=== PATIENT | male | born 2000 | race Caucasian/White ===

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

== ENCOUNTER 2021-02-03 11:00 | Emergency (ER) | payer SELFPAY ==
[~2021-02-03] VITALS: Ht 170 cm; Wt 80.0 kg
--- NOTE | 2021-02-03 11:03 | ED Integumentary General ---
General Chief Complaint: Bite-Animal/Human/Insect Stated Complaint: INSECT BITES History of Present Illness Date Seen by Provider: Feb 03, 2021 Time Seen by Provider: 11:11 Initial Comments 20-year-old male presents with sporadic sores/insect bites over mainly his left lower leg between the the mid thigh down to the ankle. Reports it has been happening for about a month. He also has a few on the right lower leg. Patient states that happened after he went out fishing. Has not been seen by anybody for it. Patient is not training for it. Reports that they get very itchy. Allergies and Home Medications Allergies Coded Allergies: NKANo Known Allergies (Unverified Allergy, Mild, 02/20/09) Uncoded Allergies: BLEACH (Allergy, Mild, 01/01/12) ENVIRONMENTAL (Allergy, Mild, 01/01/12) Home Medications Amoxicillin 875 Mg Tablet, 875 MG PO BID Prescribed by: JORGE PITT on 03/03/15 2100 Cephalexin 500 Mg Capsule, 500 MG PO TID Prescribed by: NEIL EDWARDS on 03/27/20 1607 Clotrimazole 15 Gm Cream..g., 1 GM TP BID Prescribed by: MEÑO PATEL on 01/28/18 1824 Mupirocin Calcium 15 Gm Cream..g., 15 GM TP TID Prescribed by: TOMI TRIANA on 02/03/21 1119 Patient Home Medication List Home Medication List Reviewed: Yes Review of Systems Review of Systems Constitutional: no symptoms reported Respiratory: no symptoms reported Cardiovascular: no symptoms reported Genitourinary: no symptoms reported Musculoskeletal: no symptoms reported Skin: see HPI Psychiatric/Neurological: No Symptoms Reported Endocrine: No Symptoms Reported Past Xhvyzfm-Ynvrkl-Oqbfdf Hx Immunizations Up To Date Tetanus Booster (TDap): Less than 5yrs PED Vaccines UTD: Yes Seasonal Allergies Seasonal Allergies: No Past Medical History Surgeries: Yes Adenoidectomy, Tonsillectomy Respiratory: No Cardiac: No Neurological: No Reproductive Disorders: No Gastrointestinal: No Musculoskeletal: No Endocrine: No Tonsilitis Loss of Vision: Denies Hearing Impairment: Denies Cancer: No Psychosocial: No Integumentary: No Blood Disorders: No Family Medical History Patient reports no known family medical history. Physical Exam Vital Signs Vital Signs - First Documented 02/03/21 11:10 Temp 36.3 Pulse 79 Resp 18 B/P (MAP) 135/66 (89) Pulse Ox 99 Capillary Refill : General Appearance: WD/WN, no apparent distress Cardiovascular: normal peripheral pulses, regular rate, rhythm Respiratory: lungs clear, normal breath sounds Gastrointestinal: non tender, soft Extremities: normal range of motion Neurologic/Psychiatric: alert, normal mood/affect Skin: other (Macular rash with a lot of excoriations somewhat similar to a folliculitis mainly on the left lower extremity) Progress/Results/Core Measures Results/Orders Vital Signs/I&O 02/03/21 11:10 Temp 36.3 Pulse 79 Resp 18 B/P (MAP) 135/66 (89) Pulse Ox 99 Progress Progress Note : Progress Note Patient with a nonspecific specific rash however does have many characteristics of a folliculitis. I will treat him initially for folliculitis. Recommend he obtain a primary care provider so he can have it further evaluated and ensure that it is improving. Patient stable discharged home Departure Impression Primary Impression: Folliculitis Disposition: 01 HOME, SELF-CARE Condition: Stable Departure-Patient Inst. Referrals: NO,LOCAL PHYSICIAN (PCP/Family) Primary Care Physician Patient Instructions: Folliculitis Add. Discharge Instructions: Wash area daily with benzoyl peroxide this is available [id number] or Hibiclens Please establish care with a primary care provider for outpatient management and recheck of today's symptoms All discharge instructions reviewed with patient and/or family. Voiced understanding. Scripts Mupirocin Calcium (Mupirocin) 15 Gm Cream..g. 15 GM TP TID for 7 Days, #1 TUBE Prov: TOMI TRIANA DO 02/03/21 TOMI TRIANA DO Feb 03, 2021 11:03
[2021-02-03 11:10] VITALS: BP 135/66
[2021-02-03] MEDS ORDERED: MUPI15CR11 TP (11:19)
== END 2021-02-03 11:20 | disposition home or self-care (01) ==
LOC: EDUNIT# 11:00 → ER FS 11:02
DX: L73.9 Follicular disorder, unspecified (principal)
CPT/HCPCS: 99283

== ENCOUNTER 2021-12-05 19:14 | Emergency (ER) | payer MEDICAID ==
[~2021-12-05 19:14] MED LIST changes: +MUPI15CR11 TP; -QUET25TA34; +QUET25TA35
--- NOTE | 2021-12-05 19:34 | ED General ---
General Stated Complaint: BACK PAIN History of Present Illness Date Seen by Provider: Dec 05, 2021 Time Seen by Provider: 19:34 Initial Comments 21-year-old male is here with complaints of mid and lower back pain after he was using an ax 2 days ago. He heard a pop in his back as he was lifting the accident. And has had severe pain since then. Denies sensory loss, fall, head strike, LOC, nausea and vomiting.. Patient is able to ambulate without any difficulty. Allergies and Home Medications Allergies Coded Allergies: NKANo Known Allergies (Unverified Allergy, Mild, 02/20/09) Uncoded Allergies: BLEACH (Allergy, Mild, 01/01/12) ENVIRONMENTAL (Allergy, Mild, 01/01/12) Patient Home Medication List Home Medication List Reviewed: Yes Amoxicillin (Amoxicillin) 875 Mg Tablet, 875 MG PO BID Prescribed by: JORGE PITT on 03/03/152099 Cephalexin (Keflex) 500 Mg Capsule, 500 MG PO TID Prescribed by: NEIL EDWARDS on 03/27/20 1607 Clotrimazole (Clotrimazole) 15 Gm Cream..g., 1 GM TP BID Prescribed by: MEÑO PATEL on 01/28/18 1824 Guanfacine HCl (Guanfacine HCl ER) 3 Mg Tab.er.24h, (Reported) Entered as Reported by: SUNI MUÑOZ on 03/03/151954 Mupirocin Calcium (Mupirocin) 15 Gm Cream..g., 15 GM TP TID Prescribed by: TOMI TRIANA on 02/03/21 1119 Prednisone (Prednisone) 20 Mg Tab, (Reported) Entered as Reported by: SUNI MUÑOZ on 03/03/151954 Quetiapine Fumarate (Quetiapine Fumarate) 25 Mg Tablet, (Reported) Entered as Reported by: SUNI MUÑOZ on 03/03/151954 Review of Systems Review of Systems Constitutional: no symptoms reported EENTM: no symptoms reported Respiratory: no symptoms reported Cardiovascular: no symptoms reported Gastrointestinal: no symptoms reported Genitourinary: no symptoms reported Musculoskeletal: back pain Skin: no symptoms reported Psychiatric/Neurological: No Symptoms Reported Hematologic/Lymphatic: No Symptoms Reported Immunological/Allergic: no symptoms reported Past Drnfswm-Xscyhi-Smraad Hx Immunizations Up To Date Tetanus Booster (TDap): Less than 5yrs PED Vaccines UTD: Yes Seasonal Allergies Seasonal Allergies: No Past Medical History Surgeries: Yes Adenoidectomy, Tonsillectomy Respiratory: No Cardiac: No Neurological: No Reproductive Disorders: No Gastrointestinal: No Musculoskeletal: No Endocrine: No Tonsilitis Loss of Vision: Denies Hearing Impairment: Denies Cancer: No Psychosocial: No Integumentary: No Blood Disorders: No Family Medical History Patient reports no known family medical history. Physical Exam Vital Signs Vital Signs - First Documented 12/05/21 19:27 Temp 36.9 Pulse 101 Resp 20 B/P (MAP) 138/90 (106) Pulse Ox 98 O2 Delivery Room Air Capillary Refill : Height, Weight, BMI Height: 5'7.00" Weight: 170lbs. oz. 77.530887jc; 27.00 BMI Method:Stated General Appearance: No Apparent Distress HEENT: PERRL/EOMI Neck: Full Range of Motion, Normal Inspection, Non Tender, Supple Back: Normal Inspection, No Vertebral Tenderness, Muscle Spasm (aroun T5-T9, and also around L1-L2, Straight leg test negative, no saddle anesthesia) Extremity: Normal Inspection, Normal Range of Motion Neurologic/Psychiatric: Alert, Oriented x3, No Motor/Sensory Deficits Skin: Normal Color Progress/Results/Core Measures Suspected Sepsis SIRS Temperature: Pulse: Respiratory Rate: Blood Pressure / Mean: Results/Orders My Orders Orders - DONN GREGG MD Ketorolac Injection (Toradol Injection) (12/05/21 19:45) Lumbar Spine 1 View (12/05/21 19:56) Thoracic Spine 2 View Only (12/05/21 19:56) Ct Thoracic/Lumbar Spine Wo (12/05/21 20:25) Medications Given in ED Current Medications Medications Dose Ordered Sig/Schuyler Route Start Time Stop Time Status Last Admin Dose Admin Ketorolac Tromethamine 30 mg ONCE ONCE IM 12/05/21 19:45 12/05/21 19:46 DC 12/05/21 19:47 30 MG Vital Signs/I&O 12/05/21 19:27 Temp 36.9 Pulse 101 Resp 20 B/P (MAP) 138/90 (106) Pulse Ox 98 O2 Delivery Room Air Capillary Refill : Progress Note : Progress Note 1. BACK PAIN: PARASPINAL MUSCLE SPASM: - CT SPINE / XR Thoracic and Lumbar Spine:unremarkable - Toradol 30mg im - Advised NSAID and Tylenol prn, can stagger them if needed - OTC Lidoderm patch - Heat application - Follow up with PCP in the next one week Diagnostic Imaging Diagonstic Imaging: Xray, CT Plain Films/CT/US/NM/MRI: other (spine) Comments [facility] [place] [place] NAME: [facility] REC#: [id number] PT STATUS: REG ER : 2001 PHYSICIAN: DONN GREGG MD ADMIT DATE: 12/05/21/ER FS Draft Date of Exam:12/05/21 LUMBAR SPINE 1 VIEW EXAM: LUMBAR SPINE 1 VIEW INDICATION: Back injury and pain. COMPARISON: None. FINDINGS/ IMPRESSION: Single frontal view of the lumbar spine demonstrates a subtle lucency in the region of the L4-L5 facet joint on the right which is age indeterminate. This may be due to chronic pars defect. Acute fracture cannot be excluded. This could be better evaluated with noncontrast CT of the lumbar spine. Dictated on workstation # [id number] Dict: 12/05/212014 Trans: 12/05/21 2018 [facility] [id number] Interpreted by: MEHRDAD ESTRADA MD Electronically signed by: [facility] [place] [place] NAME: JACK[facility] REC#: [id number] PT STATUS: REG ER : 2001 PHYSICIAN: DONN GREGG MD ADMIT DATE: 12/05/21/ER FS Draft Date of Exam:12/05/21 CT THORACIC/LUMBAR SPINE WO PROCEDURE: CT thoracic and lumbar spine without contrast. TECHNIQUE: Multiple contiguous axial images were obtained through the thoracic and lumbar spine without the use of intravenous contrast. Sagittal and coronal reformations were then performed. All CT scans use one or more of the following dose optimizing techniques: automated exposure control, MA and/or KvP adjustment based on a patient size and exam type, or iterative reconstruction. INDICATION: Back pain. Abnormal finding on recent lumbar spine radiographs. COMPARISON: Thoracic and lumbar spine radiographs 12/05/2021. FINDINGS: Normal alignment of the thoracic and lumbar spine. Vertebral body heights are preserved. No fractures. No spondylotic change. No evidence of neural impingement by noncontrast CT. The visualized pelvis is intact. Paravertebral soft tissues are unremarkable. IMPRESSION: No acute CT findings in the thoracic or lumbar spine. The findings on the prior lumbar spine radiograph should be artifactual. Dictated on workstation # [id number] Dict: 12/05/212114 Trans: 12/05/212118 [facility] [id number] Interpreted by: MEHRDAD ESTRADA MD Electronically signed by: [facility] [place] NAME: JACKSON [facility] REC#: [id number] PT STATUS: REG ER : 2001 PHYSICIAN: DONN GREGG MD ADMIT DATE: 12/05/21/ER FS Draft Date of Exam:12/05/21 THORACIC SPINE 2 VIEW ONLY EXAM: THORACIC SPINE 2 VIEW ONLY INDICATION: Back injury and pain. COMPARISON: None. FINDINGS: Normal alignment. Paravertebral body heights are preserved. No spondylotic change. No fracture is identified. IMPRESSION: Negative thoracic spine radiographs. Dictated on workstation # [id number] Dict: 12/05/212016 Trans: 12/05/212017 [facility] [id number] Interpreted by: MEHRDAD ESTRADA MD Electronically signed by: Departure Impression Primary Impression: Paraspinal muscle spasm Disposition: 01 HOME, SELF-CARE Condition: Stable Departure-Patient Inst. Referrals: EMILIANO WANG [employer] (PCP/Family) Primary Care Physician Patient Instructions: Muscle Spasms (DC), Back Muscle Strain (DC) Add. Discharge Instructions: - Advised NSAID and Tylenol prn, can stagger them if needed - OTC Lidoderm patch - Heat application - Follow up with PCP in hte next one week DONN GREGG MD Dec 05, 2021 19:34
[2021-12-05] MEDS ORDERED: KETOROLAC 30 MG/ML VIAL IM ONE (19:45)
--- NOTE | 2021-12-05 20:18 | Diagnostic Imaging Report ---
EXAM: LUMBAR SPINE 1 VIEW INDICATION: Back injury and pain. COMPARISON: None. FINDINGS/ IMPRESSION: Single frontal view of the lumbar spine demonstrates a subtle lucency in the region of the L4-L5 facet joint on the right which is age indeterminate. This may be due to chronic pars defect. Acute fracture cannot be excluded. This could be better evaluated with noncontrast CT of the lumbar spine. Dictated by: Dictated on workstation # [id number]
--- NOTE | 2021-12-05 20:19 | Diagnostic Imaging Report ---
EXAM: THORACIC SPINE 2 VIEW ONLY INDICATION: Back injury and pain. COMPARISON: None. FINDINGS: Normal alignment. Paravertebral body heights are preserved. No spondylotic change. No fracture is identified. IMPRESSION: Negative thoracic spine radiographs. Dictated by: Dictated on workstation # [id number]
--- NOTE | 2021-12-05 21:19 | Diagnostic Imaging Report ---
PROCEDURE: CT thoracic and lumbar spine without contrast. TECHNIQUE: Multiple contiguous axial images were obtained through the thoracic and lumbar spine without the use of intravenous contrast. Sagittal and coronal reformations were then performed. All CT scans use one or more of the following dose optimizing techniques: automated exposure control, MA and/or KvP adjustment based on a patient size and exam type, or iterative reconstruction. INDICATION: Back pain. Abnormal finding on recent lumbar spine radiographs. COMPARISON: Thoracic and lumbar spine radiographs 12/05/2021. FINDINGS: Normal alignment of the thoracic and lumbar spine. Vertebral body heights are preserved. No fractures. No spondylotic change. No evidence of neural impingement by noncontrast CT. The visualized pelvis is intact. Paravertebral soft tissues are unremarkable. IMPRESSION: No acute CT findings in the thoracic or lumbar spine. The findings on the prior lumbar spine radiograph should be artifactual. Dictated by: Dictated on workstation # [id number]
[2021-12-05 21:40] VITALS: BP 138/90
== END 2021-12-05 21:40 | disposition home or self-care (01) ==
LOC: EDUNIT# 19:14 → ER FS 19:16
DX: M62.830 Muscle spasm of back (principal); X50.1XXA Overexertion from prolonged static or awkward postures, initial encounter
CPT/HCPCS: 72020; 72070; 72128; 72131

== ENCOUNTER 2022-06-02 12:52 | Emergency (ER) | payer MEDICAID ==
[2022-06-02] MEDS ORDERED: IBUPROFEN 600 MG (MOTRIN) TAB PO ONE (13:15)
--- NOTE | 2022-06-02 13:28 | ED Lower Extremity ---
General Chief Complaint: Lower Extremity Stated Complaint: RT KNEE SWELLING Source: patient Exam Limitations: no limitations History of Present Illness Date Seen by Provider: Jun 02, 2022 Time Seen by Provider: 12:56 Initial Comments 21-year-old male with no pertinent past medical history coming in after he twisted his right ankle yesterday try to get into bed. Had immediate pain, did not feel a pop. Feels like it swollen this morning. Has not taken any medi cines for it. Pain is moderate, throbbing, worse with movement, better with rest. Otherwise denying any other acute complaints. He states he has injured it before, but has never seen anybody for it in the past. Otherwise denying any other acute complaints Allergies and Home Medications Allergies Coded Allergies: NKANo Known Allergies (Unverified Allergy, Mild, 02/20/09) Uncoded Allergies: BLEACH (Allergy, Mild, 01/01/12) ENVIRONMENTAL (Allergy, Mild, 01/01/12) Patient Home Medication List Home Medication List Reviewed: Yes Amoxicillin (Amoxicillin) 875 Mg Tablet, 875 MG PO BID Prescribed by: JORGE PITT on 03/03/152099 Cephalexin (Keflex) 500 Mg Capsule, 500 MG PO TID Prescribed by: NEIL EDWARDS on 03/27/20 1607 Clotrimazole (Clotrimazole) 15 Gm Cream..g., 1 GM TP BID Prescribed by: MEÑO PATEL on 01/28/18 1824 Guanfacine HCl (Guanfacine HCl ER) 3 Mg Tab.er.24h, (Reported) Entered as Reported by: SUNI MUÑOZ on 03/03/151954 Mupirocin Calcium (Mupirocin) 15 Gm Cream..g., 15 GM TP TID Prescribed by: TOMI TRIANA on 02/03/21 1119 Prednisone (Prednisone) 20 Mg Tab, (Reported) Entered as Reported by: SUNI MUÑOZ on 03/03/151954 Quetiapine Fumarate (Quetiapine Fumarate) 25 Mg Tablet, (Reported) Entered as Reported by: SUNI MUÑOZ on 03/03/151954 Review of Systems Constitutional: No fever EENTM: no symptoms reported Respiratory: no symptoms reported Cardiovascular: no symptoms reported Gastrointestinal: no symptoms reported Genitourinary: no symptoms reported Musculoskeletal: see HPI Skin: no symptoms reported Psychiatric/Neurological: No Symptoms Reported All Other Systems Reviewed Negative Unless Noted: Yes Past Cnpukzg-Hokwgm-Xgcsne Hx Patient Social History Tobacco Use?: Yes Immunizations Up To Date Tetanus Booster (TDap): Less than 5yrs PED Vaccines UTD: Yes First/Initial COVID19 Vaccinat: unvaccinated Seasonal Allergies Seasonal Allergies: No Past Medical History Surgery/Hospitalization HX: T&A, Asthma Surgeries: Yes Adenoidectomy, Tonsillectomy Respiratory: No Cardiac: No Neurological: No Reproductive Disorders: No Gastrointestinal: No Musculoskeletal: No Endocrine: No Tonsilitis Loss of Vision: Denies Hearing Impairment: Denies Cancer: No Psychosocial: No Integumentary: No Blood Disorders: No Family Medical History Patient reports no known family medical history. Physical Exam Vital Signs Vital Signs - First Documented 06/02/22 12:54 Temp 36.5 Pulse 92 Resp 18 B/P (MAP) 122/73 (89) Pulse Ox 95 O2 Delivery Room Air Capillary Refill : Height, Weight, BMI Height: 5'7.00" Weight: 170lbs. oz. 77.932169ir; 27.00 BMI Method:Stated General Appearance: WD/WN, no apparent distress HEENT: PERRL/EOMI, normal ENT inspection, pharynx normal Neck: non-tender, full range of motion, supple, normal inspection Cardiovascular: regular rate, rhythm, no edema, no murmur Respiratory: chest non-tender, lungs clear, normal breath sounds, no respiratory distress, no accessory muscle use Gastrointestinal: normal bowel sounds, non tender, soft; No guarding Hips: bilateral hip non-tender Legs: bilateral leg non-tender Knees: right knee pain (Mostly over anterior knee at the inferior pole of the patella), right knee swelling (Minimal), right knee other (Normal testing of the LCL, MCL, ACL, PCL) Ankles: bilateral ankle non-tender, bilateral ankle normal inspection, bilateral ankle normal range of motion, bilateral ankle no evidence of injury Neurologic/Tendon: normal sensation, normal motor functions, normal tendon functions Neurologic/Psychiatric: no motor/sensory deficits, alert, normal mood/affect Skin: normal color, warm/dry Lymphatic: no adenopathy Progress/Results/Core Measures Results/Orders My Orders Orders - MELODY MARRERO MD Knee 3 View Right (06/02/22 13:09) Ibuprofen Tablet (Motrin Tablet) (06/02/22 13:15) Medications Given in ED Current Medications Medications Dose Ordered Sig/Schuyler Route Start Time Stop Time Status Last Admin Dose Admin Ibuprofen 600 mg ONCE ONCE PO 06/02/22 13:15 06/02/22 13:16 DC 06/02/22 13:20 600 MG Vital Signs/I&O 06/02/22 06/02/22 12:54 13:33 Temp 36.5 36.5 Pulse 92 92 Resp 18 18 B/P (MAP) 122/73 (89) 122/73 Pulse Ox 95 95 O2 Delivery Room Air Room Air Progress Progress Note : Progress Note 21-year-old male with above history coming in due to right knee pain after twisting it. ABCs were intact and vitals were stable on presentation. Physical exam with a trace effusion and anterior knee tenderness at the inferior pole of the patella. Extensor mechanism intact. Ligaments feel intact as well with no laxity. X-ray with no fracture. I will have him follow-up with orthopedics as an outpatient. Otherwise well-appearing. Diagnostic Imaging Diagonstic Imaging: Xray (right knee) Departure Impression Primary Impression: Right knee sprain Qualified Codes: S83.8X1A - Sprain of other specified parts of right knee, initial encounter Disposition: 01 HOME, SELF-CARE Condition: Stable Departure-Patient Inst. Decision time for Depature: 14:00 Referrals: EMILIANO WANG APRN (PCP) Primary Care Physician [facility] (Family) Primary Care Physician KAREN LOWEP Patient Instructions: Knee Sprain ED Add. Discharge Instructions: Fortunately nothing appears broken, likely just sprained your knee which can cause pain and swelling. Take 600 mg of ibuprofen every 6 hours for the next week or so. He can also ice it. You can try wrapping it as well with an Asael b andage versus just buying an [id number] knee sleeve from [employer]. If not improving after the next 1 to 2 weeks, follow-up with Patric Lowe here in town, his numbers in this paperwork Work/School Note: Work Release Form Date Seen in the Emergency Department: Jun 02, 2022 Return to Work: Jun 04, 2022 Restrictions: No Restrictions MELODY MARRERO MD Jun 02, 2022 13:28
[2022-06-02 13:33] VITALS: BP 122/73
--- NOTE | 2022-06-02 13:41 | Diagnostic Imaging Report ---
INDICATION: Twisting injury, pain. EXAMINATION: Right knee 06/02/2022. FINDINGS: 2 views of the knee demonstrate no evidence for fracture or obvious dislocation. Lateral view not provided. Soft tissues unremarkable. IMPRESSION: 1. No acute process. Dictated by: Dictated on workstation # [id number]
== END 2022-06-02 13:37 | disposition home or self-care (01) ==
LOC: EDUNIT# 12:52 → ER FS 12:53
DX: S83.91XA Sprain of unspecified site of right knee, initial encounter (principal); Z28.310 Unvaccinated for COVID-19; X50.1XXA Overexertion from prolonged static or awkward postures, initial encounter; Y93.39 Activity, other involving climbing, rappelling and jumping off
CPT/HCPCS: 73562

== ENCOUNTER 2022-09-07 21:17 | Emergency (ER) | payer MEDICAID ==
[~2022-09-07] VITALS: Ht 175 cm; Wt 112.9 kg
--- NOTE | 2022-09-07 22:49 | ED EENT ---
History of Present Illness General Chief Complaint: Foreign Body Stated Complaint: SWALLOWED FOREIGN BODY,THROAT PAIN Source: patient History of Present Illness Date Seen by Provider: Sep 07, 2022 Time Seen by Provider: 22:49 Initial Comments 21-year-old male presenting with complaints of feeling pain in his throat. He states he was eating perch fish yesterday and felt like he was swallowing a fishbone when he was eating. He tried to spit it back out but had already s wallowed it by that point. He has felt the sensation of something scratching and moving in his throat when he swallows. He has been able to eat and drink since this occurred. He was concerned that he had a fishbone stuck in his throat. He denies having any fever, chills, nausea, vomiting, difficulty swallowing. He has had some nasal drainage and congestion. Unsure if his thro at was from possible like strep throat or viral infection or if it was from swallowing a fishbone. Since he was continuing to have pain they came to the emergency department to be evaluated. Timing/Duration: abrupt, yesterday Severity: moderate Location: throat Prearrival Treatment: no prearrival treatment Associated Symptoms: No change in hearing; cough; No drooling, No ear drainage, No facial pain/swelling, No fever, No malaise; nasal congestion/drainage; No poor fluid intake, No poor solids intake; sore throat; No tooth pain, No voice change Allergies and Home Medications Allergies Coded Allergies: NKANo Known Allergies (Unverified Allergy, Mild, 02/20/09) Uncoded Allergies: BLEACH (Allergy, Mild, 01/01/12) ENVIRONMENTAL (Allergy, Mild, 01/01/12) Patient Home Medication List Home Medication List Reviewed: Yes Amoxicillin (Amoxicillin) 875 Mg Tablet, 875 MG PO BID Prescribed by: JORGE PITT on 03/03/152099 Amoxicillin (Amoxicillin) 875 Mg Tablet, 875 MG PO BID Prescribed by: ILIANA SALINAS on 09/08/22 0037 Cephalexin (Keflex) 500 Mg Capsule, 500 MG PO TID Prescribed by: NEIL EDWARDS on 03/27/20 1607 Clotrimazole (Clotrimazole) 15 Gm Cream..g., 1 GM TP BID Prescribed by: MEÑO PATEL on 01/28/18 182 Guanfacine HCl (Guanfacine HCl ER) 3 Mg Tab.er.24h, (Reported) Entered as Reported by: SUNI MUÑOZ on 03/03/151954 Mupirocin Calcium (Mupirocin) 15 Gm Cream..g., 15 GM TP TID Prescribed by: TOMI TRIANA on 02/03/21 111 Prednisone (Prednisone) 20 Mg Tab, (Reported) Entered as Reported by: SUNI MUÑOZ on 03/03/151954 Quetiapine Fumarate (Quetiapine Fumarate) 25 Mg Tablet, (Reported) Entered as Reported by: SUNI MUÑOZ on 03/03/151954 Review of Systems Review of Systems Constitutional: No chills, No fever Eyes: No Symptoms Reported Ears: No Symptoms Reported Nose: see HPI Mouth: no symptoms reported Throat: see HPI Respiratory: see HPI Cardiovascular: no symptoms reported Gastrointestinal: no symptoms reported Musculoskeletal: no symptoms reported Skin: no symptoms reported Neurological: No Symptoms Reported Past Tnpltdm-Pgzeay-Fuwdie Hx Immunizations Up To Date Tetanus Booster (TDap): Less than 5yrs PED Vaccines UTD: Yes First/Initial COVID19 Vaccinat: unvaccinated Second COVID19 Vaccination Javed: unvaccinated Third COVID19 Vaccination Date: unvaccinated Seasonal Allergies Seasonal Allergies: No Past Medical History Surgery/Hospitalization HX: T&A, Asthma Surgeries: Yes Adenoidectomy, Tonsillectomy Respiratory: No Cardiac: No Neurological: No Reproductive Disorders: No Gastrointestinal: No Musculoskeletal: No Endocrine: No Tonsilitis Loss of Vision: Denies Hearing Impairment: Denies Cancer: No Psychosocial: No Integumentary: No Blood Disorders: No Family Medical History Patient reports no known family medical history. Physical Exam Vital Signs Vital Signs - First Documented 09/07/22 22:59 Temp 36.7 Pulse 99 Resp 18 B/P (MAP) 116/73 (87) Pulse Ox 99 O2 Delivery Room Air Height, Weight, BMI Height: 5'7.00" Weight: 170lbs. oz. 77.455274fw; 27.00 BMI Method:Stated General Appearance: WD/WN, no apparent distress Eyes: bilateral eye PERRL, bilateral eye EOMI Mouth/Throat: normal mouth inspection, pharynx normal (With mild erythema but no exudate); No uvula swelling, No voice changes Neck: non-tender, full range of motion, supple Cardiovascular: normal peripheral pulses, regular rate, rhythm Respiratory: chest non-tender, lungs clear, normal breath sounds Gastrointestinal: normal bowel sounds, non tender, soft, no pulsatile mass Neurologic/Psychiatric: alert, oriented x 3 Skin: normal color, warm/dry Progress/Results/Core Measures Results/Orders Lab Results Laboratory Tests Test 09/07/22 22:59 Range/Units Group A Streptococcus Screen NEGATIVE NEGATIVE My Orders Orders - ILIANA SALINAS MD Soft Tissue Neck (09/07/22 22:23) Ct Neck (Soft Tissue) Wo (09/07/22 23:01) Rapid Strep A Screen (09/07/22 23:02) Vital Signs/I&O 09/07/22 09/08/22 22:59 00:47 Temp 36.7 36.7 Pulse 99 99 Resp 18 18 B/P (MAP) 116/73 (87) 116/73 Pulse Ox 99 99 O2 Delivery Room Air Room Air Progress Progress Note #1: Progress Note Soft tissue neck x-rays obtained looking for possible foreign body. I did not see any obvious foreign body on that but explained to the patient that a CT would give additional detail to ensure that there was not a bone stuck there since he was still complaining of so much pain. Also added on a strep swab to check for strep throat. Progress Note #2: Progress Note CT scan of the soft tissue neck on my opinion did not have any acute bone stock in the tissues. His rapid strep test was negative. Awaiting radiology report from [facility] Progress Note #3: Progress Note I reviewed the radiologist report from [facility] and the did not appreciate acute process in his throat. They did not see any obvious foreign body or bone. He did have some sinusitis. Updated patient and family about results. Encouraged to follow a liquid and soft diet for at least 48 to 72 hours to let his throat heal from apparent scratch. If he continues to have problems or has difficulty swallowing be reevaluated as he may need to see the surgeon and Gregory for an EGD. Placed on antibiotics for sinusitis and if she did have strep throat that would also help treat that but the rapid test is approximately 85% accurate. Departure Impression Primary Impression: Abrasion of throat, initial encounter Additional Impression: Sinusitis, acute maxillary Qualified Codes: J01.00 - Acute maxillary sinusitis, unspecified Disposition: 01 HOME, SELF-CARE Condition: Stable Departure-Patient Inst. Decision time for Depature: 00:35 Referrals: EMILIANO WANG APRN (PCP) Primary Care Physician [facility] (Family) Primary Care Physician Patient Instructions: Sinusitis, Adult ED, Swallowed Objects, Adult (DC) Add. Discharge Instructions: The imaging did not demonstrate any actual bone in your throat. The pain you are feeling is likely more of a scratch to the surface of your throat and will heal over the next 2 to 3 days. Try and follow a liquid or place for soft diet keep from reinjuring the abrasion so it can heal in your throat. Take the antibiotics to treat for the sinusitis and drainage that you are having. Trying to make sure you are drinking plenty of fluids and staying well-hydrated. Check back to clinic for continued concerns. All discharge instructions reviewed with patient and/or family. Voiced understanding. Scripts Amoxicillin (Amoxicillin) 875 Mg Tablet 875 MG PO BID for sinusitis for 10 Days, #20 TAB 0 Refills Prov: ILIANA SALINAS MD 09/08/22 ILIANA SALINAS MD Sep 07, 2022 22:49
[2022-09-08] MEDS ORDERED: AMOX875T2 PO (00:37)
[2022-09-08 00:47] VITALS: BP 116/73
--- NOTE | 2022-09-08 06:23 | Diagnostic Imaging Report ---
INDICATION: Suspicion for foreign body ingestion, fishbone. FINDINGS: Frontal and lateral soft tissue neck radiographs showed no opaque foreign body. No airway embarrassment. The prevertebral space normal. IMPRESSION: No radiographic abnormality. Dictated by: Dictated on workstation # [id number]
--- NOTE | 2022-09-08 06:24 | Diagnostic Imaging Report ---
PROCEDURE: CT neck soft tissue without contrast. TECHNIQUE: Multiple contiguous axial images were obtained through the neck without the use of intravenous contrast. Auto Exposure Controls were utilized during the CT exam to meet ALARA standards for radiation dose reduction. INDICATION: Suspected ingested foreign body, fishbone now with pain. FINDINGS: There is no CT detectable aerodigestive foreign body. Free edge of the epiglottis unremarkable. The nasopharynx, oropharynx and hypopharynx unremarkable. The prevertebral and retropharyngeal spaces unremarkable. No lymphadenopathy, mass or acute fluid collection. No airway embarrassment. The bony structures appeared nonacute. IMPRESSION: Unremarkable noncontrasted soft tissue neck CT. Agree with preliminary. Dictated by: Dictated on workstation # [id number]
[2022-09-10] MEDS ORDERED: AMOX875T2 PO (09:48)
== END 2022-09-08 00:50 | disposition home or self-care (01) ==
LOC: EDUNIT# 21:17 → ER FS 21:18
DX: S10.11XA Abrasion of throat, initial encounter (principal); J01.00 Acute maxillary sinusitis, unspecified; Z28.310 Unvaccinated for COVID-19; X58.XXXA Exposure to other specified factors, initial encounter
CPT/HCPCS: 70360; 70490; 87430

== ENCOUNTER 2022-09-23 00:32 | Emergency (ER) | payer MEDICAID ==
--- NOTE | 2022-09-23 00:59 | ED General ---
General Stated Complaint: PT STS SWALLOWED FOREIGN BODY,THROAT PAIN,SOB Source of Information: Patient Exam Limitations: No Limitations History of Present Illness Date Seen by Provider: Sep 23, 2022 Time Seen by Provider: 00:59 Initial Comments Patient is a 21-year-old male who presents to the emergency room with a chief complaint of feeling short of breath. Patient states that he ate some edibles earlier in the evening. He feels like he is very short of breath. He has a history of some anxiety it sounds like ADHD as a child. On no daily medications. He is also concerned that he has fishbone stuck in his esophagus. He had an ER visit approximately 2 weeks ago in [place] after eating perch. Feels like he swallowed some fish bones and they got stuck. He had soft tissue neck x-rays and CT scan of the neck which were unremarkable. He was advised to follow-up with the surgeon if he had persistent symptoms however he has not done that. He does not like to see doctors. He does have a [place] primary care physician but has not seen that person either. No recent fevers or chills. No cough. No symptoms of illness such as nausea, vomiting or diarrhea. He brings with him his cousin and an aunt. He has a very simple demeanor. Curses quite a bit. Is not belligerent or aggressive. Denies smoking cigarettes but does smoke marijuana regularly. Denies any other illicit drug use. Is currently going through a separation from his which has increased his anxiety. Timing/Duration: 1-3 Hours Severity: Moderate Associated Systoms: Shortness of Air, Other (Throat pain) Allergies and Home Medications Allergies Coded Allergies: NKANo Known Allergies (Unverified Allergy, Mild, 02/20/09) Uncoded Allergies: BLEACH (Allergy, Mild, 01/01/12) ENVIRONMENTAL (Allergy, Mild, 01/01/12) Patient Home Medication List Home Medication List Reviewed: Yes Amoxicillin (Amoxicillin) 875 Mg Tablet, 875 MG PO BID Prescribed by: JORGE PITT on 03/03/15 2100 Amoxicillin (Amoxicillin) 875 Mg Tablet, 875 MG PO BID Prescribed by: ILIANA SALINAS on 09/10/22 0948 Cephalexin (Keflex) 500 Mg Capsule, 500 MG PO TID Prescribed by: NEIL EDWARDS on 03/27/20 1607 Clotrimazole (Clotrimazole) 15 Gm Cream..g., 1 GM TP BID Prescribed by: MEÑO PATEL on 01/28/18 1824 Guanfacine HCl (Guanfacine HCl ER) 3 Mg Tab.er.24h, (Reported) Entered as Reported by: SUNI MUÑOZ on 03/03/151954 Mupirocin Calcium (Mupirocin) 15 Gm Cream..g., 15 GM TP TID Prescribed by: TOMI TRIANA on 02/03/21 1119 Prednisone (Prednisone) 20 Mg Tab, (Reported) Entered as Reported by: SUNI MUÑOZ on 03/03/151954 Quetiapine Fumarate (Quetiapine Fumarate) 25 Mg Tablet, (Reported) Entered as Reported by: SUNI MUÑOZ on 03/03/151954 Review of Systems Review of Systems Constitutional: see HPI EENTM: throat pain Respiratory: short of breath Cardiovascular: no symptoms reported Gastrointestinal: no symptoms reported Genitourinary: no symptoms reported Skin: no symptoms reported Psychiatric/Neurological: Anxiety Past Ftjxnck-Tgkvob-Ijmpii Hx Immunizations Up To Date Tetanus Booster (TDap): Less than 5yrs PED Vaccines UTD: Yes First/Initial COVID19 Vaccinat: unvaccinated Second COVID19 Vaccination Javed: unvaccinated Third COVID19 Vaccination Date: unvaccinated Seasonal Allergies Seasonal Allergies: No Past Medical History Surgery/Hospitalization HX: T&A, Asthma Surgeries: Yes Adenoidectomy, Tonsillectomy Respiratory: No Cardiac: No Neurological: No Reproductive Disorders: No Gastrointestinal: No Musculoskeletal: No Endocrine: No Tonsilitis Loss of Vision: Denies Hearing Impairment: Denies Cancer: No Psychosocial: No Integumentary: No Blood Disorders: No Family Medical History Patient reports no known family medical history. Physical Exam Vital Signs Vital Signs - First Documented Capillary Refill : Height, Weight, BMI Height: 5'7.00" Weight: 170lbs. oz. [id number]; 36.00 BMI Method:Stated General Appearance: WD/WN, Anxious Eyes: Bilateral Eye Normal Inspection, Bilateral Eye PERRL, Bilateral Eye EOMI HEENT: PERRL/EOMI Neck: Full Range of Motion, Normal Inspection, Non Tender Respiratory: Lungs Clear, Normal Breath Sounds, No Accessory Muscle Use, No Respiratory Distress, Other (Room air sats 92 to 95%. No increased work of breathing or respiratory distress.) Cardiovascular: Regular Rate, Rhythm (150), Tachycardia Gastrointestinal: Non Tender, Soft Extremity: Normal Range of Motion Neurologic/Psychiatric: Alert, Oriented x3, No Motor/Sensory Deficits, Depressed Affect Skin: Normal Color, Warm/Dry Progress/Results/Core Measures Suspected Sepsis SIRS Temperature: Pulse: Respiratory Rate: Laboratory Tests 09/23/22 01:20: White Blood Count 12.5H Blood Pressure / Mean: Laboratory Tests 09/23/22 01:20: Creatinine 1.14, Platelet Count 396 Results/Orders Lab Results Laboratory Tests Test 09/23/22 01:20 09/23/22 02:25 Range/Units White Blood Count 12.5 H 4.3-11.0 10^3/uL Red Blood Count 5.30 4.30-5.52 10^6/uL Hemoglobin 16.1 13.3-17.7 g/dL Hematocrit 46 40-54 % Mean Corpuscular Volume 87 80-99 fL Mean Corpuscular Hemoglobin 30 25-34 pg Mean Corpuscular Hemoglobin Concent 35 32-36 g/dL Red Cell Distribution Width 12.3 10.0-14.5 % Platelet Count 396 130-400 10^3/uL Mean Platelet Volume 10.1 9.0-12.2 fL Immature Granulocyte % (Auto) 1 % Neutrophils (%) (Auto) 64 42-75 % Lymphocytes (%) (Auto) 25 12-44 % Monocytes (%) (Auto) 8 0-12 % Eosinophils (%) (Auto) 2 0-10 % Basophils (%) (Auto) 1 0-10 % Neutrophils # (Auto) 8.0 H 1.8-7.8 10^3/uL Lymphocytes # (Auto) 3.1 1.0-4.0 10^3/uL Monocytes # (Auto) 1.0 0.0-1.0 10^3/uL Eosinophils # (Auto) 0.2 0.0-0.3 10^3/uL Basophils # (Auto) 0.1 0.0-0.1 10^3/uL Immature Granulocyte # (Auto) 0.1 0.0-0.1 10^3/uL Sodium Level 142 135-145 MMOL/L Potassium Level 3.7 3.6-5.0 MMOL/L Chloride Level 105 98-107 MMOL/L Carbon Dioxide Level 23 21-32 MMOL/L Anion Gap 14 5-14 MMOL/L Blood Urea Nitrogen 17 7-18 MG/DL Creatinine 1.14 0.60-1.30 MG/DL Estimat Glomerular Filtration Rate 94 BUN/Creatinine Ratio 15 Glucose Level 105 70-105 MG/DL Calcium Level 10.2 H 8.5-10.1 MG/DL C-Reactive Protein High Sensitivity 0.72 H 0.00-0.50 MG/DL Urine Opiates Screen NEGATIVE NEGATIVE Urine Oxycodone Screen NEGATIVE NEGATIVE Urine Methadone Screen NEGATIVE NEGATIVE Urine Propoxyphene Screen NEGATIVE NEGATIVE Urine Barbiturates Screen NEGATIVE NEGATIVE Ur Tricyclic Antidepressants Screen NEGATIVE NEGATIVE Urine Phencyclidine Screen NEGATIVE NEGATIVE Urine Amphetamines Screen NEGATIVE NEGATIVE Urine Methamphetamines Screen NEGATIVE NEGATIVE Urine Benzodiazepines Screen NEGATIVE NEGATIVE Urine Cocaine Screen NEGATIVE NEGATIVE Urine Cannabinoids Screen POSITIVE H NEGATIVE My Orders Orders - RAMILA FARRAR MD Ed Iv/Invasive Line Start (09/23/22 01:14) Cbc With Automated Diff (09/23/22 01:14) Basic Metabolic Panel (09/23/22 01:14) Hs C Reactive Protein (09/23/22 01:14) Chest 1 View, Ap/Pa Only (09/23/22 01:14) Ns Iv 1000 Ml (Sodium Chloride 0.9%) (09/23/22 01:14) Lorazepam Tablet (Ativan Tablet) (09/23/22 01:14) Drug Screen Stat (Urine) (09/23/22 02:15) Vital Signs/I&O 09/23/22 09/23/22 09/23/22 00:50 00:50 01:44 Temp 36.1 Pulse 151 128 Resp 20 B/P (MAP) 128/118 (121) Pulse Ox 98 100 O2 Delivery Room Air Room Air Room Air Capillary Refill : Progress Note : Time: 03:06 Progress Note Patient seen and evaluated by me. Evaluation today includes physical exam, CBC, basic metabolic panel, CRP, UDS and chest x-ray. Physical exam pertinent for well-developed well-nourished 21-year-old male slightly agitated with significant tachycardia to 150. Lungs are clear. Abdomen is soft and benign. Patient appears adequately hydrated. He does appear intoxicated on likely marijuana and possibly some other stimulant. No focal neurologic deficits. Differential diagnosis based on history and physical exam, intoxication, sepsis, retained esophageal foreign body/fishbone's. Labs reviewed and independently interpreted by me, CBC slightly elevated white blood cell count. Chemistry is normal. CRP is not elevated. Urine drug screen positive for THC only. Chest x-ray interpreted by me no infiltrate, effusion or other abnormalities. Patient was treated in the emergency room with 1 mg of Ativan and IV fluids. His heart rate has come down to the 120 range. He feels better. No clinical or objective findings to warrant further studies from the emergency department I do not suspect esophageal perforation or mediastinitis. He is not febrile/septic. He may still have retained fishbone's in the esophagus and I recommended follow- up with Dr. ACEVES for EGD. He is given contact information. He is advised to decrease his smoking of marijuana. He has a family member at the bedside. All questions are sought and answered. Patient is stable for discharge. Diagnostic Imaging Diagonstic Imaging: Xray Comments interpreted by me - no focal infiltrates or effusions or other abnormality Departure Impression Primary Impression: Marijuana intoxication Qualified Codes: F12.920 - Cannabis use, unspecified with intoxication, uncomplicated Additional Impression: Dysphagia Qualified Codes: R13.10 - Dysphagia, unspecified Disposition: HOME, SELF-CARE Condition: Stable Departure-Patient Inst. Decision time for Depature: 03:03 Referrals: EMILIANO WANG APRN (PCP) Primary Care Physician [facility]/ (Family) Primary Care Physician RADHA ACEVES MD Patient Instructions: Marijuana Use and Addiction (DC), Dysphagia Add. Discharge Instructions: You should cut back on your marijuana use if possible. Follow a soft diet. Call Dr Aceves's office Sunday and schedule and appointment for evaluation. You likely need an upper esophageal scope to look for retained fish bones in your esophagus / throat. If you get a fever or worsening pain, please return to the ER for re-evaluation. Please follow up with your primary care doctor. Drink plenty of fluids to hydrate. Copy Copies To 1: FADIA HARRISON DO Copies To 2: RADHA ACEVES MD, KATHRYN M MD Sep 23, 2022 00:59
[2022-09-23] MEDS ORDERED: NS IV 1000 ML 1,000 ML IV STA (01:14)
[2022-09-23] MEDS ORDERED: LORazepam 0.5 MG (ATIVAN) TABLET PO STA (01:14)
[2022-09-23 01:42] LABS: BASOPHILS # (AUTO) 0.1 10^3/uL (0.0-0.1); BASOPHILS % (AUTO) 1 % (0-10); EOSINOPHILS # (AUTO) 0.2 10^3/uL (0.0-0.3); EOSINOPHILS % (AUTO) 2 % (0-10); HEMATOCRIT 46 % (40-54); HEMOGLOBIN 16.1 g/dL (13.3-17.7); LYMPHOCYTES # (AUTO) 3.1 10^3/uL (1.0-4.0); LYMPHOCYTES % (AUTO) 25 % (12-44); MEAN CORPUSCULAR HEMOGLOBIN 30 pg (25-34); MEAN CORPUSCULAR HGB CONC 35 g/dL (32-36); MEAN CORPUSCULAR VOLUME 87 fL (80-99); MEAN PLATELET VOLUME 10.1 fL (9.0-12.2); MONOCYTES % (AUTO) 8 % (0-12); NEUTROPHILS % (AUTO) 64 % (42-75); PLATELET COUNT 396 10^3/uL (130-400); WHITE BLOOD COUNT 12.5 10^3/uL (4.3-11.0)
[2022-09-23 01:51] LABS: POTASSIUM 3.7 MMOL/L (3.6-5.0)
[2022-09-23 01:52] LABS: CALCIUM 10.2 MG/DL (8.5-10.1)
[2022-09-23 01:56] LABS: CREATININE SERUM 1.14 MG/DL (0.60-1.30)
[2022-09-23 02:46] LABS: AMPHETAMINE SCREEN, URINE NEGATIVE (NEGATIVE); BARBITURATE SCREEN URINE NEGATIVE (NEGATIVE); BENZODIAZEPINES SCREEN URINE NEGATIVE (NEGATIVE); CANNABINOID SCREEN, URINE POSITIVE (NEGATIVE); COCAINE SCREEN URINE NEGATIVE (NEGATIVE); METHADONE STAT NEGATIVE (NEGATIVE); OPIATE SCREEN URINE NEGATIVE (NEGATIVE); OXYCODONE STAT NEGATIVE (NEGATIVE); PROPOXYPHENE STAT NEGATIVE (NEGATIVE); TRICYCLIC ANTIDEPRESSANTS SCRE NEGATIVE (NEGATIVE)
[2022-09-23 03:10] VITALS: BP 111/93
--- NOTE | 2022-09-23 06:17 | Diagnostic Imaging Report ---
INDICATION: Shortness of air. TECHNIQUE: Single view chest 1:32 AM. CORRELATION STUDY: None FINDINGS: The heart size, mediastinal configuration and pulmonary vascularity are within normal limits. The lungs are clear with no consolidating infiltrate. There is no significant effusion or pneumothorax. IMPRESSION: 1. Negative appearing portable chest. Dictated by: Dictated on workstation # [id number]
== END 2022-09-23 03:15 | disposition home or self-care (01) ==
LOC: EDUNIT# 00:32 → ER 00:36
DX: R13.10 Dysphagia, unspecified (principal); F12.920 Cannabis use, unspecified with intoxication, uncomplicated; F41.9 Anxiety disorder, unspecified; Z28.310 Unvaccinated for COVID-19
CPT/HCPCS: 36415; 71045; 80048; 80306; 85025; 86141

== ENCOUNTER 2022-11-16 12:19 | Emergency (ER) | payer MEDICAID ==
[2022-11-16] MEDS ORDERED: NS IV 1000 ML 1,000 ML IV STA (12:29)
--- NOTE | 2022-11-16 12:29 | ED Abdominal Pain ---
General Stated Complaint: ULQ PAIN Source of Information: Patient, EMS Exam Limitations: No Limitations History of Present Illness Date Seen by Provider: November 16, 2022 Time Seen by Provider: 12:18 Initial Comments 22-year-old male presents emerged department today for right flank pain that occasionally radiates to his right groin. His thinks he may have had an infection because he had a brown tinge to his urine last night. He had no pain however he woke up this morning about 1130 and had pain in his right upper quadrant, right flank that radiates into his right groin again and only occasionally into the groin. No fevers or chills. He has nausea without any vomiting. Pain is described as sharp stabbing. He is never had similar pains in the past. No history of abdominal surgeries. Normal bowel movements and urination prior to this event. No penile discharge or symptoms. All other systems reviewed and negative except documented per HPI. Voice recognition software was used to help create this chart Allergies and Home Medications Allergies Coded Allergies: NKANo Known Allergies (Unverified Allergy, Mild, 02/20/09) Uncoded Allergies: BLEACH (Allergy, Mild, 01/01/12) ENVIRONMENTAL (Allergy, Mild, 01/01/12) Patient Home Medication List Home Medication List Reviewed: Yes Amoxicillin (Amoxicillin) 875 Mg Tablet, 875 MG PO BID Prescribed by: JORGE PITT on 03/03/15 2100 Amoxicillin (Amoxicillin) 875 Mg Tablet, 875 MG PO BID Prescribed by: ILIANA SALINAS on 09/10/22 0948 Cephalexin (Keflex) 500 Mg Capsule, 500 MG PO TID Prescribed by: NEIL EDWARDS on 03/27/20 1607 Clotrimazole (Clotrimazole) 15 Gm Cream..g., 1 GM TP BID Prescribed by: MEÑO PATEL on 01/28/18 1824 Guanfacine HCl (Guanfacine HCl ER) 3 Mg Tab.er.24h, (Reported) Entered as Reported by: SUNI MUÑOZ on 03/03/151954 Hydrocodone/Acetaminophen (Hydrocodone-Acetamin 5-325 mg) 5 Mg-325 Mg Tablet, 1 TAB PO Q4H PRN for PAIN-MODERATE (5-7) Prescribed by: JOSR MCPHERSON MD on 11/16/22 1313 Last Action: New Order Ketorolac Tromethamine (Ketorolac Tromethamine) 10 Mg Tablet, 10 MG PO TID Prescribed by: JOSR MCPHERSON MD on 11/16/221311 Last Action: New Order Mupirocin Calcium (Mupirocin) 15 Gm Cream..g., 15 GM TP TID Prescribed by: TOMI TRIANA on 02/03/21 1119 Prednisone (Prednisone) 20 Mg Tab, (Reported) Entered as Reported by: SUNI MUÑOZ on 03/03/151954 Quetiapine Fumarate (Quetiapine Fumarate) 25 Mg Tablet, (Reported) Entered as Reported by: SUNI MUÑOZ on 03/03/151954 Tamsulosin HCl (Flomax) 0.4 Mg Cap, 0.4 MG PO DAILY Prescribed by: JOSR MCPHERSON MD on 11/16/221311 Last Action: New Order Review of Systems Review of Systems Constitutional: see HPI Past Pfmfjzp-Ossfww-Xdirfa Hx Patient Social History Tobacco Use?: Yes Use of E-Cig and/or Vaping dev: No Substance use?: Yes Alcohol Use?: No Immunizations Up To Date Tetanus Booster (TDap): Less than 5yrs PED Vaccines UTD: Yes First/Initial COVID19 Vaccinat: unvaccinated Second COVID19 Vaccination Javed: unvaccinated Third COVID19 Vaccination Date: unvaccinated Seasonal Allergies Seasonal Allergies: No Past Medical History Surgery/Hospitalization HX: T&A, Asthma Surgeries: Yes Adenoidectomy, Tonsillectomy Respiratory: No Cardiac: No Neurological: No Reproductive Disorders: No Gastrointestinal: No Musculoskeletal: No Endocrine: No Tonsilitis Loss of Vision: Denies Hearing Impairment: Denies Cancer: No Psychosocial: No Integumentary: No Blood Disorders: No Family Medical History Patient reports no known family medical history. Physical Exam Vital Signs Vital Signs - First Documented 11/16/22 12:20 Temp 37.0 Pulse 81 Resp 16 B/P (MAP) 121/96 (104) Pulse Ox 97 O2 Delivery Room Air Capillary Refill : Height/Weight/BMI Height: 5'7.00" Weight: 170lbs. oz. 77.323186nh; 36.00 BMI Method:Stated General Appearance: WD/WN HEENT: PERRL/EOMI, normal ENT inspection, pharynx normal Respiratory: chest non-tender, lungs clear, normal breath sounds, no respiratory distress, no accessory muscle use Cardiovascular: regular rate, rhythm, no murmur Gastrointestinal: normal bowel sounds, soft, no organomegaly, tenderness (Tenderness palpation mostly in the right upper quadrant but somewhat in the right lower quadrant as well. Voluntary guarding without any rebound tenderness. No mass organomegaly. No skin changes.) Extremities: normal range of motion, no calf tenderness, normal capillary refill Neurologic/Psychiatric: alert, oriented x 3 Skin: normal color, warm/dry Progress/Results/Core Measures Results/Orders Lab Results Laboratory Tests Test 11/16/22 12:32 Range/Units White Blood Count 8.2 4.3-11.0 10^3/uL Red Blood Count 5.52 4.30-5.52 10^6/uL Hemoglobin 16.6 13.3-17.7 g/dL Hematocrit 49 40-54 % Mean Corpuscular Volume 90 80-99 fL Mean Corpuscular Hemoglobin 30 25-34 pg Mean Corpuscular Hemoglobin Concent 34 32-36 g/dL Red Cell Distribution Width 12.5 10.0-14.5 % Platelet Count 315 130-400 10^3/uL Mean Platelet Volume 10.6 9.0-12.2 fL Immature Granulocyte % (Auto) 0 % Neutrophils (%) (Auto) 51 42-75 % Lymphocytes (%) (Auto) 30 12-44 % Monocytes (%) (Auto) 11 0-12 % Eosinophils (%) (Auto) 8 0-10 % Basophils (%) (Auto) 1 0-10 % Neutrophils # (Auto) 4.2 1.8-7.8 10^3/uL Lymphocytes # (Auto) 2.5 1.0-4.0 10^3/uL Monocytes # (Auto) 0.9 0.0-1.0 10^3/uL Eosinophils # (Auto) 0.6 H 0.0-0.3 10^3/uL Basophils # (Auto) 0.1 0.0-0.1 10^3/uL Immature Granulocyte # (Auto) 0.0 0.0-0.1 10^3/uL Neutrophils % (Manual) 48 % Lymphocytes % (Manual) 23 % Monocytes % (Manual) 13 % Eosinophils % (Manual) 8 % Band Neutrophils 1 % Atypical Lymphocytes 7 % Platelet Estimate NORMAL Blood Morphology Comment NORMAL Sodium Level 142 135-145 MMOL/L Potassium Level 3.9 3.6-5.0 MMOL/L Chloride Level 102 98-107 MMOL/L Carbon Dioxide Level 27 21-32 MMOL/L Anion Gap 13 5-14 MMOL/L Blood Urea Nitrogen 19 H 7-18 MG/DL Creatinine 1.05 0.60-1.30 MG/DL Estimat Glomerular Filtration Rate 104 BUN/Creatinine Ratio 18 Glucose Level 108 H 70-105 MG/DL Calcium Level 10.3 H 8.5-10.1 MG/DL Corrected Calcium 8.5-10.1 MG/DL Total Bilirubin 1.2 H 0.1-1.0 MG/DL Aspartate Amino Transf (AST/SGOT) 48 H 5-34 U/L Alanine Aminotransferase (ALT/SGPT) 76 H 0-55 U/L Alkaline Phosphatase 111 40-136 U/L Total Protein 8.6 H 6.4-8.2 GM/DL Albumin 5.1 H 3.2-4.5 GM/DL Lipase 19 8-78 U/L My Orders Orders - JOSR MCPHERSON DO Comprehensive Metabolic Panel (11/16/22 12:25) Cbc And Manual Diff (11/16/22 12:25) Lipase (11/16/22 12:25) Ua Culture If Indicated (11/16/22 12:25) Ct Abd/Pelvis Wo(Kidney Stone) (11/16/22 12:25) Iv/Invasive Line Insertion .IV INSERT (11/16/22 12:29) Ketorolac Injection (Toradol Injection) (11/16/22 12:30) Ns Iv 1000 Ml (Sodium Chloride 0.9%) (11/16/22 12:29) Ondansetron Injection (Zofran Injectio (11/16/22 13:00) Hydrocodone/Apap 5/325 Tablet (Lortab 5 (11/16/22 13:15) Medications Given in ED Current Medications Medications Dose Ordered Sig/Schuyler Route Start Time Stop Time Status Last Admin Dose Admin Ketorolac Tromethamine 15 mg ONCE ONCE IVP 11/16/22 12:30 11/16/22 12:31 DC 11/16/22 12:47 15 MG Ondansetron HCl 8 mg ONCE ONCE IVP 11/16/22 13:00 11/16/22 13:01 DC 11/16/22 12:52 8 MG Vital Signs/I&O 11/16/22 12:20 Temp 37.0 Pulse 81 Resp 16 B/P (MAP) 121/96 (104) Pulse Ox 97 O2 Delivery Room Air Departure Communication (Admissions) Patient is hemodynamically stable, afebrile and nontoxic overall. He has a small kidney stone on the right side, 3 mm. His pain is controlled with IV Toradol alone, stating he no longer feels pain whatsoever. There was a delay in his care due to him being unable to provide a urine specimen but ultimately he did and there is no evidence for infection. I will prescribe him p.o. hydrocodone, Toradol as well as Flomax and discharge him in stable condition. He will be given urology follow-up if necessary however advised he did not necessarily need to follow-up for first kidney stone if his symptoms resolve in 48 hours. He states understanding. He is discharged in stable condition. Impression Primary Impression: Ureterolithiasis Additional Impression: Renal colic on right side Disposition: HOME, SELF-CARE Condition: Stable Departure-Patient Inst. Referrals: EMILIANO WANG APRN (PCP) Primary Care Physician [facility] [place] (Family) Primary Care Physician Rachel JAVIER MD Patient Instructions: Kidney Stone, Adult ED Add. Discharge Instructions: You have a kidney stone on the right side. Normally these pass on their own within 24 hours however symptoms can last several days. If symptoms not improving in several days I recommend you call the urologist recommended on your discharge instructions to schedule an appointment. Take the pain medications as needed. Hydrocodone may make you drowsy so do not drive or make important decisions while taking it. This may also cause constipation so I recommend you take a stool softener while taking it as well. Toradol is an anti-inflammatory medication and should not be used with other anti-inflammatory medications such as Motrin Aleve aspirin or ibuprofen. Take the Flomax as prescribed to help with passage of the kidney stone. Once your pain has subsided you can stop taking this. Return to the emergency department should you have severe pain that is not controlled by your pain medications or if your symptoms change in any way concerning to you. Scripts Tamsulosin HCl (Flomax) 0.4 Mg Cap 0.4 MG PO DAILY for 5 Days, #5 CAP Prov: VIDA,JOSR L DO 11/16/22 Ketorolac Tromethamine (Ketorolac Tromethamine) 10 Mg Tablet 10 MG PO TID for Pain for 3 Days, #9 TAB Prov: JOSR MCPHERSON DO 11/16/22 Hydrocodone/Acetaminophen (Hydrocodone-Acetamin 5-325 mg) 5 Mg-325 Mg Tablet 1 TAB PO Q4H PRN for PAIN-MODERATE (5-7) for 3 Days, #12 TAB Prov: JOSR MCPHERSON DO 11/16/22 JOSR MCPHERSON DO November 16, 2022 12:29
[2022-11-16] MEDS ORDERED: KETOROLAC 15 MG/ML VIAL IVP ONE (12:30)
[2022-11-16 12:44] LABS: BASOPHILS # (AUTO) 0.1 10^3/uL (0.0-0.1); BASOPHILS % (AUTO) 1 % (0-10); EOSINOPHILS # (AUTO) 0.6 10^3/uL (0.0-0.3); EOSINOPHILS % (AUTO) 8 % (0-10); HEMATOCRIT 49 % (40-54); HEMOGLOBIN 16.6 g/dL (13.3-17.7); LYMPHOCYTES # (AUTO) 2.5 10^3/uL (1.0-4.0); LYMPHOCYTES % (AUTO) 30 % (12-44); MEAN CORPUSCULAR HEMOGLOBIN 30 pg (25-34); MEAN CORPUSCULAR HGB CONC 34 g/dL (32-36); MEAN CORPUSCULAR VOLUME 90 fL (80-99); MEAN PLATELET VOLUME 10.6 fL (9.0-12.2); MONOCYTES # (AUTO) 0.9 10^3/uL (0.0-1.0); MONOCYTES % (AUTO) 11 % (0-12); NEUTROPHILS # (AUTO) 4.2 10^3/uL (1.8-7.8); NEUTROPHILS % (AUTO) 51 % (42-75); PLATELET COUNT 315 10^3/uL (130-400); WHITE BLOOD COUNT 8.2 10^3/uL (4.3-11.0)
[2022-11-16] MEDS ORDERED: ONDANSETRON 4 MG/2 ML (SDV) Z0FRAN IVP ONE (13:00)
--- NOTE | 2022-11-16 13:04 | Diagnostic Imaging Report ---
PROCEDURE: CT urinary tract, rule out kidney stone. TECHNIQUE: Multiple contiguous axial images were obtained through the abdomen and pelvis without the use of intravenous contrast. Auto Exposure Controls were utilized during the CT exam to meet ALARA standards for radiation dose reduction. INDICATION: Right-sided abdominal pain. COMPARISON: No prior studies are available for comparison. The lung bases are clear. The liver and gallbladder are unremarkable. There is no biliary ductal dilatation. The pancreas and spleen are unremarkable. No adrenal mass is identified. Left kidney is unremarkable. Right kidney does show moderate hydronephrosis. There is a 3 mm stone in the proximal right ureter near the UPJ. No other urinary tract calculi are seen. Bladder is decompressed. Aorta is nonaneurysmal. Bowel loops are normal caliber. Appendix is unremarkable. There is no ascites. IMPRESSION: There is a 3 mm proximal right ureteric calculus producing moderate hydronephrosis. No other significant abnormality is detected. Dictated by: Dictated on workstation # [id number]
[2022-11-16 13:06] LABS: ATYPICAL LYMPHOCYTES 7 %; BAND NEUTROPHILS 1 %; EOSINOPHILS % (MANUAL) 8 %; LYMPHOCYTES % (MANUAL) 23 %; MONOCYTES % (MANUAL) 13 %; NEUTROPHILS % (MANUAL) 48 %
[2022-11-16 13:07] LABS: PLATELET ESTIMATE NORMAL; RBC MORPH NORMAL
[2022-11-16 13:08] LABS: ALKALINE PHOSPHATASE 111 U/L (40-136); BILIRUBIN,TOTAL 1.2 MG/DL (0.1-1.0); BUN/CREATININE RATIO 18; CALCIUM 10.3 MG/DL (8.5-10.1); CARBON DIOXIDE 27 MMOL/L (21-32); CHLORIDE 102 MMOL/L (98-107); CREATININE SERUM 1.05 MG/DL (0.60-1.30); GFR ESTIMATED 104; GLUCOSE 108 MG/DL (70-105); POTASSIUM 3.9 MMOL/L (3.6-5.0); SODIUM 142 MMOL/L (135-145)
[2022-11-16 13:09] LABS: ALANINE AMINOTRANSFERASE 76 U/L (0-55); ALBUMIN 5.1 GM/DL (3.2-4.5); LIPASE 19 U/L (8-78); TOTAL PROTEIN 8.6 GM/DL (6.4-8.2)
[2022-11-16] MEDS ORDERED: ACHD5005 PO (13:12)
[2022-11-16] MEDS ORDERED: TMSL.4C PO (13:12)
[2022-11-16] MEDS ORDERED: KETO10TA PO (13:12)
[2022-11-16] MEDS ORDERED: HYDROcodone/APAP 5 MG/325 MG (LORTAB) TAB PO ONE (13:15)
[2022-11-16 13:23] LABS: CLARITY,URINE TURBID; GLUCOSE, URINE (UA) TRACE (NEGATIVE); KETONES,URINE TRACE (NEGATIVE); LEUKOCYTE ESTERASE ,URINE NEGATIVE (NEGATIVE); PH,URINE 8.5 (5-9); PROTEIN,URINE 3+ (NEGATIVE)
[2022-11-16 13:24] VITALS: BP 118/84
[2022-11-16 13:43] LABS: BACTERIA,URINE NEGATIVE /HPF; NITRITE,URINE NEGATIVE (NEGATIVE); RBC,URINE >100 /HPF; SQUAMOUS EPITHELIAL CELL,UR RARE /HPF; WBC,URINE 0-2 /HPF
[2022-11-16 13:44] LABS: BILIRUBIN,URINE 2+ (NEGATIVE)
[2022-11-16 13:52] LABS: COLOR,URINE RED
== END 2022-11-16 13:25 | disposition home or self-care (01) ==
LOC: EDUNIT# 12:19 → ER FS 12:23
DX: N20.0 Calculus of kidney (principal); Z28.310 Unvaccinated for COVID-19
CPT/HCPCS: 36415; 74176; 80053; 81000; 83690; 85007; 85027

== ENCOUNTER 2022-12-22 11:39 | Emergency (ER) | payer MEDICAID ==
[~2022-12-22 11:39] MED LIST changes: +ACHD5005 PO; +KETO10TA PO; +TMSL.4C PO
[2022-12-22 11:45] VITALS: BP 119/77
--- NOTE | 2022-12-22 12:04 | ED GU-Male ---
General Chief Complaint: - Reproductive Stated Complaint: SUPRAPUBIC/TESTICULAR PAIN Source: patient History of Present Illness Date Seen by Provider: Dec 22, 2022 Time Seen by Provider: 11:44 Initial Comments 22-year-old male presenting with complaints of pain going in his right flank and into the testicles. He started noticing this yesterday but it got worse today. He was diagnosed with a kidney stone at the end of October but never felt the stone pass. He was concerned that the was trying to pass the kidney stone now. He denies having nausea or vomiting, diarrhea, constipation. He states it feels like he needs to pee and there is a burning sensation but he cannot get any urine to come out. He has not tried taking anything for pain at home. He feels like he can not get comfortable and can not find a comfortable position. Timing/Duration: yesterday, getting worse Severity/Quality: sharp Location: right flank Radiation: other (Testicles) Activities at Onset: none Prior Genitourinary Problems: similar symptoms (kidney stone in October 2022) Sexual [place] History: less than 2 months ago Modifying Factors: Worsens With Urinating Associated Symptoms: abdominal pain (right flank and RLQ); No diaphoresis; dysuria (burning and sharp pain in testicles and penis but unable to urinate); No fever/chills, No loss of bladder control; lower back pain; No lumps, No mass, No nausea/vomiting, No nocturia, No polyuria, No swelling, No syncope, No urinary frequency Allergies and Home Medications Allergies Coded Allergies: NKANo Known Allergies (Unverified Allergy, Mild, 02/20/09) Uncoded Allergies: BLEACH (Allergy, Mild, 01/01/12) ENVIRONMENTAL (Allergy, Mild, 01/01/12) Patient Home Medication List Home Medication List Reviewed: Yes Amoxicillin (Amoxicillin) 875 Mg Tablet, 875 MG PO BID Prescribed by: JORGE PITT on 03/03/15 2100 Amoxicillin (Amoxicillin) 875 Mg Tablet, 875 MG PO BID Prescribed by: ILIANA SALINAS on 09/10/22 0948 Cephalexin (Keflex) 500 Mg Capsule, 500 MG PO TID Prescribed by: NEIL EDWARDS on 03/27/20 1607 Ciprofloxacin HCl (Ciprofloxacin HCl) 500 Mg Tablet, 500 MG PO BID Prescribed by: ILIANA SALINAS on 12/22/22 1311 Clotrimazole (Clotrimazole) 15 Gm Cream..g., 1 GM TP BID Prescribed by: MEÑO PATEL on 01/28/18 1824 Guanfacine HCl (Guanfacine HCl ER) 3 Mg Tab.er.24h, (Reported) Entered as Reported by: SUNI MUÑOZ on 03/03/151954 Hydrocodone/Acetaminophen (Hydrocodone-Acetamin 5-325 mg) 5 Mg-325 Mg Tablet, 1 TAB PO Q4H PRN for PAIN-MODERATE (5-7) Prescribed by: JOSR MCPHERSON MD on 11/16/22 1313 Ketorolac Tromethamine (Ketorolac Tromethamine) 10 Mg Tablet, 10 MG PO TID Prescribed by: JOSR MCPHERSON MD on 11/16/22 1312 Mupirocin Calcium (Mupirocin) 15 Gm Cream..g., 15 GM TP TID Prescribed by: TOMI TRIANA on 02/03/21 1119 Prednisone (Prednisone) 20 Mg Tab, (Reported) Entered as Reported by: SUNI MUÑOZ on 03/03/151954 Quetiapine Fumarate (Quetiapine Fumarate) 25 Mg Tablet, (Reported) Entered as Reported by: SUNI MUÑOZ on 03/03/151954 Tamsulosin HCl (Flomax) 0.4 Mg Cap, 0.4 MG PO DAILY Prescribed by: ILIANA SALINAS on 12/22/22 1311 Review of Systems Review of Systems Constitutional: No chills, No fever EENTM: no symptoms reported Respiratory: no symptoms reported Cardiovascular: no symptoms reported Gastrointestinal: see HPI Genitourinary: see HPI Musculoskeletal: back pain Skin: No rash Psychiatric/Neurological: Anxiety Past [place]-Ibjmwr-Aoivcf Hx Patient Social History Tobacco Use?: Yes Tobacco type used: Cigarettes Smoking Status: Current Everyday Smoker Substance use?: No Alcohol Use?: No Pt feels they are or have been: No Immunizations Up To Date Tetanus Booster (TDap): Less than 5yrs PED Vaccines UTD: Yes First/Initial COVID19 Vaccinat: unvaccinated Second COVID19 Vaccination Javed: unvaccinated Third COVID19 Vaccination Date: unvaccinated Seasonal Allergies Seasonal Allergies: No Past Medical History Surgery/Hospitalization HX: T&A, Asthma, Kidney stones Surgeries: Yes Adenoidectomy, Tonsillectomy Respiratory: No Cardiac: No Neurological: No Reproductive Disorders: No Gastrointestinal: No Musculoskeletal: No Endocrine: No Tonsilitis Loss of Vision: Denies Hearing Impairment: Denies Cancer: No Psychosocial: No Integumentary: No Blood Disorders: No Family Medical History Patient reports no known family medical history. Physical Exam Vital Signs Vital Signs - First Documented 12/22/22 11:45 Temp 35.7 Pulse 77 Resp 16 B/P (MAP) 119/77 (91) Pulse Ox 99 O2 Delivery Room Air Capillary Refill : Height, Weight, BMI Height: 5'7.00" Weight: 170lbs. oz. [id number]; 36.00 BMI Method:Stated General Appearance: other (patient keeps moving on the bed and in the room as he states he can not find a comfortable position) HEENT: PERRL/EOMI Cardiovascular: normal peripheral pulses, regular rate, rhythm Respiratory: chest non-tender, lungs clear, normal breath sounds, no respiratory distress, no accessory muscle use Gastrointestinal: normal bowel sounds, soft, no pulsatile mass; No distended, No guarding, No rebound; tenderness (right flank and RLQ) Rectal: deferred Back: no CVA tenderness, no vertebral tenderness Extremities: normal range of motion, non-tender, normal capillary refill Neurologic/Psychiatric: alert, oriented x 3 Skin: normal color, warm/dry Progress/Results/Core Measures Suspected Sepsis SIRS Temperature: Pulse: Respiratory Rate: Blood Pressure / Mean: Results/Orders Lab Results Laboratory Tests Test 12/22/22 11:45 Range/Units Urine Color YELLOW Urine Clarity CLEAR Urine pH 6.0 5-9 Urine Specific [place] 1.025 H 1.016-1.022 Urine Protein 1+ H NEGATIVE Urine Glucose (UA) NEGATIVE NEGATIVE Urine Ketones NEGATIVE NEGATIVE Urine Nitrite NEGATIVE NEGATIVE Urine Bilirubin NEGATIVE NEGATIVE Urine Urobilinogen 1.0 < = 1.0 MG/DL Urine Leukocyte Esterase 1+ H NEGATIVE Urine RBC (Auto) 3+ H NEGATIVE Urine RBC 10-25 H /HPF Urine WBC 0-2 /HPF Urine Squamous Epithelial Cells NONE /HPF Urine Crystals PRESENT H /LPF Urine Calcium Oxalate Crystals FEW H /LPF Urine Bacteria MODERATE H /HPF Urine Casts NONE /LPF Urine Mucus LARGE H /LPF Urine Culture Indicated YES My Orders Orders - ILIANA SALINAS MD Ua Culture If Indicated (12/22/22 11:46) Ct Abd/Pelvis Wo(Kidney Stone) (12/22/22 11:57) Urine Culture (12/22/22 11:45) Ketorolac Injection (Toradol Injection) (12/22/22 12:16) Strain Urine (12/22/22 13:12) Vital Signs/I&O 12/22/22 11:45 Temp 35.7 Pulse 77 Resp 16 B/P (MAP) 119/77 (91) Pulse Ox 99 O2 Delivery Room Air Capillary Refill : Progress Note #1: Progress Note Potential diagnosis of renal colic, UTI, STD, appendicitis, colitis, diverticulitis, cystitis, pyelonephritis Try to obtain urinalysis to check for signs of infection and blood. Offered a Toradol pain shot but patient refused as he stated that he did not like needles unless they were tattoo needles. Will obtain CT scan without contrast of abdomen/pelvis to evaluate for possible kidney stone or pathology to be causing his symptoms. Progress Note #2: Progress Note Urinalysis did show bacteria with white blood cells and leukocyte esterase. We will treat with an antibiotic, ciprofloxacin 500 mg p.o. twice daily x5 days for UTI. Also refilled the tamsulosin for helping to relax the ureter and prostate so the stone could pass easier. Encourage patient to drink lots of water and electrolyte drinks to help hydrate and get the stone to pass. Avoid carbonated drinks and caffeinated drinks. Given information for Dr. Brown, urologist if he was having further problems and have him strain all urine. By straining his urine he could see if the stone pass. With the holiday on December 26 coming up encourage patient to call the clinic if he was not having improvement by Sunday or . Be seen sooner if he is having worsening symptoms before the next week. Patient states he still has some hydrocodone at home advised he could use that for severe pain. Diagnostic Imaging Diagonstic Imaging: CT Plain Films/CT/US/NM/MRI: abdomen, pelvis Comments [facility] [place], [place] NAME: SUNIJACKSON Cristina [facility] REC#: [id number] PT STATUS: REG ER : 2000 PHYSICIAN: ILIANA SALINAS MD ADMIT DATE: 12/22/22/ER FS Draft Date of Exam:12/22/22 CT ABD/PELVIS WO(KIDNEY STONE) Clinical indications: Patient with right flank pain. Recent kidney stone a month ago. Exam: CT exam of the abdomen and pelvis is performed without IV or oral contrast using stone protocol. Coronal and sagittal reformatted images were created. Auto Exposure Controls were utilized during the CT exam to meet ALARA standards for radiation dose reduction. Comparisons: CT scan abdomen and pelvis without contrast dated 11/16/2022. Findings: Visualized lung bases: Unremarkable. Liver: Unremarkable as visualized. Gallbladder: Unremarkable. Pancreas: Unremarkable as visualized. Spleen: Unremarkable as visualized. Adrenal glands: Unremarkable. Kidneys/ ureters: There is a 3 mm obstructive stone within the distal right ureter/UVJ region. There is moderate right hydronephrosis again seen. Patient previously had a 3 mm stone in the proximal right ureter/UPJ region. It is possible that this may represent same stone and it has now migrated. There is stable amount of moderate hydronephrosis. There is a previously seen nonobstructive stone involving the upper pole of the right kidney which has resolved. There are no other urinary tract stones seen. The left kidney is unremarkable. There is no left hydronephrosis. Aorta: Unremarkable as visualized. Intraabdominal/ retroperitoneal contents: Unremarkable. Intestines: Unremarkable as visualized. Appendix: Unremarkable. Bladder: Unremarkable as visualized. Pelvic organs: Unremarkable as visualized. Extra abdominal/ pelvis regions: Unremarkable. Abdominal wall: Unremarkable. Bones: Unremarkable. Impression: 1: There is a 3 mm stone within the distal right ureter/UVJ region with similar moderate right hydronephrosis. Patient previously had a stone in the proximal right ureter/UPJ region. Unknown if this stone migrated to the distal ureter or if this represents another stone. 2: The previously seen nonobstructive small stone in the upper pole of the right kidney is not seen on this exam and may be resolved. Dictated on workstation # [id number] Dict: 12/22/22 1225 Trans: 12/22/22 1239 CV [id number] Interpreted by: STEVEN KOWALSKI MD Electronically signed by: Reviewed: Reviewed by Me Departure Impression Primary Impression: Right flank pain Additional Impressions: Renal colic on right side Calculus of distal right ureter Bacteria in urine Disposition: HOME, SELF-CARE Condition: Improved Departure-Patient Inst. Decision time for Depature: 13:09 Referrals: EMILIANO WANG APRN (PCP) Primary Care Physician [facility] (Family) Primary Care Physician Patient Instructions: Flank Pain ED, How to Strain Your Urine, Kidney Stone, Adult ED, Kidney Stone Diet Add. Discharge Instructions: Make sure to stay well-hydrated and drink plenty of water and electrolyte drinks to help the kidney stone pass. The tamsulosin or Flomax for home will help to make it easier for the kidney stone to pass. Take the ciprofloxacin antibiotic twice a day to help treat for the bacteria present in your urine. Avoid caffeinated and carbonated drinks as they could make the kidney stones worse. If you are continuing to have problems and do not seen the stone pass when you are straining your urine then you could call the urologist, Dr. Brown. His office phone number is [phone] All discharge instructions reviewed with patient and/or family. Voiced understanding. Scripts Ciprofloxacin HCl (Ciprofloxacin HCl) 500 Mg Tablet 500 MG PO BID for Bacteria in Urine for 5 Days, #10 TAB 0 Refills Prov: ILIANA SALINAS MD 12/22/22 Tamsulosin HCl (Flomax) 0.4 Mg Cap 0.4 MG PO DAILY for Renal Colic for 5 Days, #5 CAP 0 Refills Prov: ILIANA SALINAS MD 12/22/22 ILIANA SALINAS MD Dec 22, 2022 12:04
[2022-12-22 12:12] LABS: BILIRUBIN,URINE NEGATIVE (NEGATIVE); CLARITY,URINE CLEAR; COLOR,URINE YELLOW; GLUCOSE, URINE (UA) NEGATIVE (NEGATIVE); KETONES,URINE NEGATIVE (NEGATIVE); LEUKOCYTE ESTERASE ,URINE 1+ (NEGATIVE); NITRITE,URINE NEGATIVE (NEGATIVE); PROTEIN,URINE 1+ (NEGATIVE); WBC,URINE 0-2 /HPF
[2022-12-22 12:13] LABS: BACTERIA,URINE MODERATE /HPF; CALCIUM OXALATE CRYSTALS,UR FEW /LPF
[2022-12-22] MEDS ORDERED: KETOROLAC 60 MG/2 ML VIAL IM STA (12:16)
--- NOTE | 2022-12-22 12:39 | Diagnostic Imaging Report ---
Clinical indications: Patient with right flank pain. Recent kidney stone a month ago. Exam: CT exam of the abdomen and pelvis is performed without IV or oral contrast using stone protocol. Coronal and sagittal reformatted images were created. Auto Exposure Controls were utilized during the CT exam to meet ALARA standards for radiation dose reduction. Comparisons: CT scan abdomen and pelvis without contrast dated 11/16/2022. Findings: Visualized lung bases: Unremarkable. Liver: Unremarkable as visualized. Gallbladder: Unremarkable. Pancreas: Unremarkable as visualized. Spleen: Unremarkable as visualized. Adrenal glands: Unremarkable. Kidneys/ ureters: There is a 3 mm obstructive stone within the distal right ureter/UVJ region. There is moderate right hydronephrosis again seen. Patient previously had a 3 mm stone in the proximal right ureter/UPJ region. It is possible that this may represent same stone and it has now migrated. There is stable amount of moderate hydronephrosis. There is a previously seen nonobstructive stone involving the upper pole of the right kidney which has resolved. There are no other urinary tract stones seen. The left kidney is unremarkable. There is no left hydronephrosis. Aorta: Unremarkable as visualized. Intraabdominal/ retroperitoneal contents: Unremarkable. Intestines: Unremarkable as visualized. Appendix: Unremarkable. Bladder: Unremarkable as visualized. Pelvic organs: Unremarkable as visualized. Extra abdominal/ pelvis regions: Unremarkable. Abdominal wall: Unremarkable. Bones: Unremarkable. Impression: 1: There is a 3 mm stone within the distal right ureter/UVJ region with similar moderate right hydronephrosis. Patient previously had a stone in the proximal right ureter/UPJ region. Unknown if this stone migrated to the distal ureter or if this represents another stone. 2: The previously seen nonobstructive small stone in the upper pole of the right kidney is not seen on this exam and may be resolved. Dictated by: Dictated on workstation # [id number]
[2022-12-22] MEDS ORDERED: CIPR500T5 PO (13:11)
[2022-12-22] MEDS ORDERED: TMSL.4C PO (13:11)
== END 2022-12-22 13:20 | disposition home or self-care (01) ==
LOC: EDUNIT# 11:39 → ER FS 11:41
DX: N13.2 Hydronephrosis with renal and ureteral calculous obstruction (principal); R82.71 Bacteriuria; F17.210 Nicotine dependence, cigarettes, uncomplicated; Z28.310 Unvaccinated for COVID-19
CPT/HCPCS: 74176; 81000; 87088

== ENCOUNTER → 2023-04-18 | Outpatient (CLI) | payer MEDICAID ==
[~2023-04-18] MED LIST changes: +CATHETER FLUSH 10 ML SYR IVP PRN; +CIPR500T5 PO
== END ==
LOC: CARD 12:37
PROVIDERS: ATTEND Nurse Practitioner Family
DX: R74.01 Elevation of levels of liver transaminase levels (principal); R10.9 Unspecified abdominal pain

== ENCOUNTER 2023-05-25 02:46 | Emergency (ER) | payer MEDICAID ==
[~2023-05-25] VITALS: Ht 177.8 cm; Wt 94.6 kg
[~2023-05-25 02:46] MED LIST changes: -CATHETER FLUSH 10 ML SYR IVP PRN
[2023-05-25 02:49] VITALS: BP 137/80
--- NOTE | 2023-05-25 02:54 | ED Abdominal Pain ---
General Stated Complaint: ABD PAIN FOR A MONTH History of Present Illness Date Seen by Provider: May 25, 2023 Time Seen by Provider: 02:54 Initial Comments 22-year-old male presents with epigastric abdominal pain and burning in his throat and complains of painful swallowing this been going on for almost 2 months. Patient reports that he has been seen at other hospitals for this. Patient reports that when he lays down he feels like he has something coming up in his throat. He states he has been dealing with reflux "a long time" patient is not having difficulty breathing. Allergies and Home Medications Allergies Coded Allergies: NKANo Known Allergies (Unverified Allergy, Mild, 02/20/09) Uncoded Allergies: BLEACH (Allergy, Mild, 01/01/12) ENVIRONMENTAL (Allergy, Mild, 01/01/12) Patient Home Medication List Home Medication List Reviewed: Yes Amoxicillin (Amoxicillin) 875 Mg Tablet, 875 MG PO BID Prescribed by: JORGE PITT on 03/03/15 2100 Amoxicillin (Amoxicillin) 875 Mg Tablet, 875 MG PO BID Prescribed by: ILIANA SALINAS on 09/10/22 0948 Cephalexin (Keflex) 500 Mg Capsule, 500 MG PO TID Prescribed by: NEIL EDWARDS on 03/27/20 1607 Ciprofloxacin HCl (Ciprofloxacin HCl) 500 Mg Tablet, 500 MG PO BID Prescribed by: ILIANA SALINAS on 12/22/22 1311 Clotrimazole (Clotrimazole) 15 Gm Cream..g., 1 GM TP BID Prescribed by: MEÑO PATEL on 01/28/18 1824 Guanfacine HCl (Guanfacine HCl ER) 3 Mg Tab.er.24h, (Reported) Entered as Reported by: SUNI MUÑOZ on 03/03/151954 Hydrocodone/Acetaminophen (Hydrocodone-Acetamin 5-325 mg) 5 Mg-325 Mg Tablet, 1 TAB PO Q4H PRN for PAIN-MODERATE (5-7) Prescribed by: JOSR MCPHERSON MD on 11/16/22 1313 Ketorolac Tromethamine (Ketorolac Tromethamine) 10 Mg Tablet, 10 MG PO TID Prescribed by: JOSR MCPHERSON MD on 11/16/22 1312 Mupirocin Calcium (Mupirocin) 15 Gm Cream..g., 15 GM TP TID Prescribed by: TOMI TRIANA on 02/03/21 1119 Prednisone (Prednisone) 20 Mg Tab, (Reported) Entered as Reported by: SUNI MUÑOZ on 03/03/151954 Quetiapine Fumarate (Quetiapine Fumarate) 25 Mg Tablet, (Reported) Entered as Reported by: SUNI MUÑOZ on 03/03/151954 Tamsulosin HCl (Flomax) 0.4 Mg Cap, 0.4 MG PO DAILY Prescribed by: ILIANA SALINAS on 12/22/22 1311 Review of Systems Review of Systems Constitutional: No chills, No fever EENTM: See HPI, Throat Pain Respiratory: No Symptoms Reported Cardiovascular: No Symptoms Reported Gastrointestinal: See HPI, Abdominal Pain Past Kukcldu-Rehdhq-Fpdduc Hx Immunizations Up To Date Tetanus Booster (TDap): Less than 5yrs PED Vaccines UTD: Yes First/Initial COVID19 Vaccinat: unvaccinated Second COVID19 Vaccination Javed: unvaccinated Third COVID19 Vaccination Date: unvaccinated Seasonal Allergies Seasonal Allergies: No Past Medical History Surgery/Hospitalization HX: T&A, Asthma, Kidney stones Surgeries: Yes Adenoidectomy, Tonsillectomy Respiratory: No Cardiac: No Neurological: No Reproductive Disorders: No Gastrointestinal: No Musculoskeletal: No Endocrine: No Tonsilitis Loss of Vision: Denies Hearing Impairment: Denies Cancer: No Psychosocial: No Integumentary: No Blood Disorders: No Family Medical History Patient reports no known family medical history. Physical Exam Vital Signs Vital Signs - First Documented 05/25/23 02:49 Temp 36.5 Pulse 85 Resp 16 B/P (MAP) 137/80 (99) Pulse Ox 97 O2 Delivery Room Air Capillary Refill : Height/Weight/BMI Height: 5'7.00" Weight: 170lbs. oz. 77.937859aa; 36.00 BMI Method:Stated General Appearance: WD/WN, no apparent distress HEENT: pharynx normal; No pharyngeal erythema, No tonsillar exudate Neck: full range of motion, supple Respiratory: lungs clear, normal breath sounds Cardiovascular: normal peripheral pulses, regular rate, rhythm Gastrointestinal: soft; No distended, No guarding Neurologic/Psychiatric: alert, normal mood/affect, oriented x 3 Skin: normal color, warm/dry Progress/Results/Core Measures Results/Orders Vital Signs/I&O 05/25/23 02:49 Temp 36.5 Pulse 85 Resp 16 B/P (MAP) 137/80 (99) Pulse Ox 97 O2 Delivery Room Air Progress Progress Note : Progress Note Patient has been having pain for at least 2 months and likely longer. His symptoms are very consistent with GERD. Chart review shows that he has not been and an [facility] or [place] in 6 months. He is likely being seen at other hospitals. I discussed with patient that at this time he will be started on omeprazole, Prilosec. I will provide him a prescription for Carafate. He will need follow-up with a GI specialist or general surgeon for further evaluation including a probable EGD. Patient is tolerating liquids and this is been going on for quite some time so there is no emergent need for an EGD or consultation. With patient symptoms being at least 2 months old and him stating that he has had prior workups and which they have not found anything, showing no indications for labs or imaging at this time. This can be done on outpatient nonemergent basis. Departure Impression Primary Impression: Gastroesophageal reflux disease with esophagitis Qualified Codes: K21.00 - Gastro-esophageal reflux disease with esophagitis, without bleeding Disposition: HOME, SELF-CARE Condition: Stable Departure-Patient Inst. Referrals: EMILIANO WANG APRN (PCP) Primary Care Physician [facility] (Family) Primary Care Physician RADHA ACEVES MD please call to arrange an appt Patient Instructions: Esophagitis, Acid reflux and gastroesophageal reflux disease in adults Add. Discharge Instructions: 20 mg Pepcid/famotidine twice daily take as directed on package. Omeprazole twice daily for 2 weeks then once daily as directed on package. Maalox as directed on package. Please note that it takes approximately 7 to 10 days to start getting some effect and up to 2 weeks for full effect from the medications. Please follow-up with your primary care provider for referral to a GI specialist or general surgeon. You may call Dr. Aceves's office, general surgeon in [place] to arrange for your own follow-up and evaluation. Scripts Sucralfate (Sucralfate) 1 Gram/10 Ml Oral.susp 1 GM PO QIDACHS, #500 ML Prov: TOMI TRIANA DO 05/25/23 TOMI TRIANA DO May 25, 2023 02:54
[2023-05-25] MEDS ORDERED: SUCR1ORA15 PO (03:19)
== END 2023-05-25 03:22 | disposition home or self-care (01) ==
LOC: EDUNIT# 02:46 → ER FS 02:48
DX: K21.00 Gastro-esophageal reflux disease with esophagitis, without bleeding (principal)
CPT/HCPCS: 99281